=== PATIENT | female | born 1970 ===

== ENCOUNTER 2017-08-23 10:42 | Emergency (ER) | payer OTHER ==
[~2017-08-23] VITALS: Ht 160 cm; Wt 83.0 kg
[2017-08-23] MEDS ORDERED: SYNTHROID125 MCG (11:09)
[2017-08-23] MEDS ORDERED: VASOTEC2.5 MG (11:09)
[2017-08-23] MEDS ORDERED: NEURONTIN600 MG (11:09)
[2017-08-23] MEDS ORDERED: HYDROCHLOROTH12.5 M1 (11:09)
[2017-08-23] MEDS ORDERED: CYMBALTA20 MG (11:09)
[2017-08-23] MEDS ORDERED: [UNRECOGNIZED DRUG - SUPPLY] (11:10)
[2017-08-23] MEDS ORDERED: RIZATRIPTAN5 M1 (11:10)
[2017-08-23] MEDS ORDERED: MONTELUKAST SODI1 GM (11:10)
[2017-08-23] MEDS ORDERED: PEPCID40 MG/5 ML (11:10)
[2017-08-23] MEDS ORDERED: RESTORIL30 MG (11:10)
[2017-08-23] MEDS ORDERED: ZANTAC25 MG/1 ML (11:11)
[2017-08-23] MEDS ORDERED: ORPHENADRI30 MG/1 ML (11:11)
[2017-08-23] MEDS ORDERED: ALBUTEROL0.63 MG/3 (11:11)
[2017-08-23] MEDS ORDERED: OXYCONTIN10 M1 (11:11)
[2017-08-23] MEDS ORDERED: PNEU16DI2 (11:11)
[2017-08-23] MEDS ORDERED: LINZESS72 MCG (11:11)
[2017-08-23] MEDS ORDERED: ADVAIR 100-501 EACH (11:12)
[2017-08-23] MEDS ORDERED: LEVSIN0.125 MG (11:12)
[2017-08-23] MEDS ORDERED: BENTYL10 MG/1 ML (11:12)
== END 2017-08-24 00:06 | disposition home or self-care (01) ==
LOC: ER 10:42
DX: K52.9 Noninfective gastroenteritis and colitis, unspecified (principal); E86.0 Dehydration; R10.84 Generalized abdominal pain

== ENCOUNTER 2017-11-15 11:00 | Inpatient (IN) | payer OTHER ==
[~2017-11-15] VITALS: Ht 160 cm; Wt 81.6 kg
[~2017-11-15 11:00] MED LIST: ADVAIR 100-501 EACH; ALBUTEROL0.63 MG/3; BENTYL10 MG/1 ML; CYMBALTA20 MG; HYDROCHLOROTH12.5 M1; LEVSIN0.125 MG; LINZESS72 MCG; MONTELUKAST SODI1 GM; NEURONTIN600 MG; ORPHENADRI30 MG/1 ML; OXYCONTIN10 M1; PEPCID40 MG/5 ML; PNEU16DI2; RESTORIL30 MG; RIZATRIPTAN5 M1; SYNTHROID125 MCG; VASOTEC2.5 MG; ZANTAC25 MG/1 ML; [UNRECOGNIZED DRUG - SUPPLY]
== END 2017-11-18 16:44 | disposition other institution (70) | DRG 460 ==
LOC: SURH 11:00 → O/R 11-17 06:10 → PED 11-17 06:10 → SURH 11-17 07:00 → PED 11-17 18:20
PROVIDERS: Orthopaedic Surgery
PROC: 00NY0ZZ Release Lumbar Spinal Cord, Open Approach (ICD-10-PCS; 2017-11-17)
PROC: 0ST20ZZ Resection of Lumbar Vertebral Disc, Open Approach (ICD-10-PCS; 2017-11-17)
PROC: 0SP00AZ Removal of Interbody Fusion Device from Lumbar Vertebral Joint, Open Approach (ICD-10-PCS; 2017-11-17)
PROC: 0SG00AJ Fusion of Lumbar Vertebral Joint with Interbody Fusion Device, Posterior Approach, Anterior Column, Open Approach (ICD-10-PCS; principal; 2017-11-17 07:00)
DX: T84.498A Other mechanical complication of other internal orthopedic devices, implants and grafts, initial encounter (principal); M51.16 Intervertebral disc disorders with radiculopathy, lumbar region; M48.061 Spinal stenosis, lumbar region without neurogenic claudication; I10 Essential (primary) hypertension; R50.82 Postprocedural fever

== ENCOUNTER 2017-11-19 00:03 | Inpatient (IN) | payer OTHER ==
[~2017-11-19] VITALS: Ht 160 cm; Wt 81.6 kg
== END 2017-11-21 13:43 | disposition home or self-care (01) | DRG 690 ==
LOC: ER 00:03 → SURH 11:42
PROC: 4A033R1 Measurement of Arterial Saturation, Peripheral, Percutaneous Approach (ICD-10-PCS; principal; 2017-11-19)
PROC: 3E0F7GC Introduction of Other Therapeutic Substance into Respiratory Tract, Via Natural or Artificial Opening (ICD-10-PCS; 2017-11-19)
DX: N39.0 Urinary tract infection, site not specified (principal); K52.89 Other specified noninfective gastroenteritis and colitis; E86.0 Dehydration; I10 Essential (primary) hypertension; M54.16 Radiculopathy, lumbar region; B96.29 Other Escherichia coli [E. coli] as the cause of diseases classified elsewhere; Z16.12 Extended spectrum beta lactamase (ESBL) resistance